=== PATIENT | male | born 1990 | race Caucasian/White ===

== ENCOUNTER 2017-01-31 11:03 | Emergency (ER) | payer OTHER ==
[~2017-01-31] VITALS: Ht 190.5 cm; Wt 110.0 kg
[~2017-01-31 11:03] MED LIST: NPR500T PO
[2017-01-31 11:07] VITALS: BP 119/78; PULSE 85; RESP 16; O2SAT 97
--- NOTE | 2017-01-31 11:52 | ED.REPORT ---
HPI-Back Pain Under 40 Date of Service Jan 31, 2017 ED Provider: Ananda Guardado MD 26 y/o male with a hx of HTN and lower back and left ankle arthritis presents to the ED complaining of throbbing back pain. Pt was carrying a 100 lb cement panel at work yesterday when he heard his back pop. Prior to the injury he had moved several panels. Since then, he has had moderate lower back pain. Pt returned to work today where his legs started shaking and felt generally weak upon picking up a similar cement panel. He went to urgent care, where he was prescribed Naproxen, a steroid and a muscle relaxant and was recommended to followup occupational therapy. Pt reports when he got into his care after being seen at urgent care he felt another pop and immediately felt dizzy and noticed numbness in his right leg. After this he decided to come to the emergency department for evaluation. He denies bladder or bowel incontinence, dysuria, loss of sensation in groin, urinary retention, focal weakness, fever and chills. Pt does not use any IV drugs and has not previously. Nursing Notes Stated Complaint: BACK PAIN/CHANGE IN CONDITION Chief Complaint: Back Pain or Injury Nursing Notes Reviewed: Yes Allergies: Coded Allergies: Latex, Natural Rubber (Verified Allergy, Severe, Anaphylaxis, 01/31/17) morphine (Verified Allergy, Severe, Anaphylaxis, 01/31/17) promethazine (Verified Allergy, Severe, Anaphylaxis, 01/31/17) lisinopril (Verified Adverse Reaction, Unknown, Rash,Itching,, 01/31/17) cough Scheduled PRN Naproxen (Naproxen) 500 Mg Tab 500 MG PO BID PRN PRN For Pain General Time Seen by MD: 11:48 Chief Complaint Back pain Hx Obtained From: Patient Arrived By: Walk-in Sudden in Onset?: Yes Onset Occurred: Yesterday Symptom Duration: Since onset Caused by: Lifting Quality: Painful Radiation: : Does not radiate Severity: Current: Moderate Severity: Maximum: Moderate Recent Healthcare: No recent doctor visit Similar Sx Previous: No Past Medical History Past Medical History lower back and left ankle arthritis Reports: Hypertension Past Surgical History Reports: Appendectomy Family History Noncontributory Smoking History Former Smoker Social History Alcohol Use: "Social" Drug Use: Denies drug use Other Social History: Good social support, Local resident Ambulatory Status Independent Review of Systems Denies loss of sensation in groin. Constitutional: Denies: Chills, Fever Male: Denies Dysuria, Denies Incontinence, Denies Urination decreased Musculoskeletal: Reports: Back pain Neurologic: Reports: Dizziness, Numbness (right leg, transient), Weakness Complete sys rev & neg: except as marked. Physical Exam Initial Vital Signs Vital Signs (First) Date Time Temp Pulse Resp B/P Pulse Ox O2 Delivery O2 Flow Rate FiO2 01/31/17 11:07 36.6 85 16 119/78 97 01/31/17 13:17 Room Air Initial VS: Reviewed, Vital signs normal ENT: Mucous membranes moist, Conjunctiva normal, No scleral icterus Neck: Non-tender, Full range of motion Respiratory: Breath sounds normal, Clear to auscultation, No respiratory distress Abdomen / GI: Soft, Non-tender, No guarding, No rebound, No distention Extremities: Vascular intact, Neuro intact, No swelling, No tenderness Skin: Warm, Dry, No cyanosis Psychiatric: Mood/affect normal, Behavior normal, Normal thought content General/Constitutional: Awake, Alert, Cooperative, Not toxic appearing Back: No midline vertebral tend Bilateral lumbar tenderness diffusely. No focal midline tenderness. Neurologic: Oriented X3, Speech NL, No motor deficits, No sensory deficits Normal sensation bilaterally in lower extremities No saddle anesthesia. Normal patellar reflexes. 5/5 flexion extension of knee and ankles. 5/5 hip flexion. Cardiovascular: Heart rate NL, Regular rhythm, Heart sounds NL, No gallop, No murmurs, No rubs Good radial pulses Re-Eval/Medical Decision Med Decision/Clinical Course 26 y/o male with a hx of HTN and lower back and left ankle arthritis presents to the ED complaining of throbbing back pain. Pt was carrying a 100IB cement panel down a couple of 2 foot steps at work yesterday when he heard his back pop. Since then, he has had back pain and felt dizzy. He went to urgent care, where he was prescribed Naproxen, a steroid and a muscle relaxant and was recommended occupational therapy. Pt returned to work today where his legs started shaking upon picking up a similar cement panel. Pt reports constant leg tremors and weakness but denies incontinence, dysuria, loss of sensation in groin, fever and chills. Pt does not use any IV drugs. Our primary and secondary assessment reveals an awake, alert patient in no acute distress. Hemodynamically stable and afebrile. Exam reveals normal neurologic exam of the lower extremities. Given this immunocompetent, afebrile, patient's history and exam, suspect muscle strain or spasm, given the history of popping sensation I also wonder if he may have herniated a disc. At this time there are no concerning signs or symptoms suggestive of cauda equina, cord compression, epidural abscess or other neurologic emergency. History not suggestive of referred intraabdominal pathology or vascular emergency. There is no history of significant trauma, fever, incontinence, unexplained weight loss, cancer history, long-term steroid use or IV drug use. And given the patient's young age, I do not feel imaging is warranted at this time. Given the patient's workup, feel they are safe for discharge with conservative management. The patient was given intramuscular Toradol for symptom control while here in the ER. He is advised to follow-up with occupational therapy and take medications prescribed at urgent care. He will abstain from heavy lifting and has been provided with a work note. Have discussed with the patient results of workup, indications for return including: motor weakness in the lower extremities and/or bowel or bladder incontinence. Also emphasized the need for PCP follow up. They understand and agree with the plan. Source of Hx: Old records Re-Evaluation/Progress : Time of Eval: 11:50 Patient Status: Condition improved Re-Evaluation/Progress Note: Informed the pt of diagnosis and plan to discharge. Pt understood and agreed witht the plan. F/U and RTER instructions given. All questions answered. Counseled Regarding: Diagnosis, Need for follow-up, When/why to return to ED Discharge & Departure Impression: Primary Impression: Low back pain Chronicity: acute Back pain laterality: bilateral Sciatica presence: without sciatica Qualified Code: M54.5 - Low back pain Additional Impression: Lumbosacral strain Encounter type: initial encounter Qualified Code: S39.012A - Strain of muscle, fascia and tendon of lower back, initial encounter Disposition: Home All VS Reviewed: Yes Condition: Stable Patient Instructions: Acute Low Back Pain (ED) Additional Instructions: Thank you for seeking care at the emergency room. It is difficult for us to make definitive diagnoses in the ED but we believe that you are experiencing musculoskeletal pain. You also may have herniated a disc. Our primary goal today in the ED was to evaluate you for any life-threatening conditions. Your evaluation was reassuring. I recommend applying hot and ice packs if this helps. You should also be up moving around and stretching regularly. Fill the prescriptions that were given to you at urgent care. You should follow-up with the occupational physician next week. You should return to the ED immediately if you develop numbness, weakness, saddle numbness, inability to walk, bladder or bowel incontinence, urinary retention, or any other concerning signs or symptoms. Thank you for letting us partake in your care today. [facility] Scribe Attestation Portions of this note were transcribed by Darci Espitia and Melia Watts . I, personally performed the history, physical exam and medical decision-making;I reviewed and confirmed the accuracy of the information in the transcribed note. Signed by Darci Espitia and Anna Flores. 01/31/17 13:30. copies to: [facility] LIUDMILA CAUSEY Beck O MD Jan 31, 2017 11:52 Darci Espitia Jan 31, 2017 12:37 Melia Watts Jan 31, 2017 13:27
[2017-01-31 13:17] VITALS: BP 124/78; PULSE 69; RESP 16
== END 2017-01-31 13:18 | disposition home or self-care (01) ==
LOC: SED 11:54
DX: S39.012A Strain of muscle, fascia and tendon of lower back, initial encounter (principal); X50.0XXA Overexertion from strenuous movement or load, initial encounter; Y93.89 Activity, other specified; Y92.69 Other specified industrial and construction area as the place of occurrence of the external cause; Y99.0 Civilian activity done for income or pay; I10 Essential (primary) hypertension; Z87.891 Personal history of nicotine dependence; Z88.5 Allergy status to narcotic agent; Z88.8 Allergy status to other drugs, medicaments and biological substances; Z91.040 Latex allergy status
CPT/HCPCS: 96372; 99283; J1885